=== PATIENT | male | born 1990 | race Caucasian/White ===

== ENCOUNTER 2017-10-06 19:09 | Inpatient (IN) | payer OTHER ==
[2017-10-06 19:55] VITALS: BMI 23.3
--- NOTE | 2017-10-06 20:21 | HP ---
CIWA Score - CIWA Score Nausea/Vomitin-No Nausea/No Vomiting Muscle Tremors: 1-None Visible, but [place] Anxiety: 4-Mod. Anxious/Guarded Agitation: 4-Moderately Restless Paroxysmal Sweats: 3 (flushed face) Orientation: 3-Disoriented Date>2 days Tacttile Disturbances: 0-None Auditory Disturbances: 0-None Visual Disturbances: 0-None Headache: 0-None Present CIWA-Ar Total Score: 15 Admission ROS S - HPI Chief Complaint: c/o withdrawal sx's. seeking detox from alcohol Allergies/Adverse Reactions: Allergies Allergy/AdvReac Type Severity Reaction Status Date / Time No Known Allergies Allergy Verified 10/06/17 20:13 History of Present Illness: 27 Y.O. MALE WITH ALCOHOL DEPENDENCE HERE FOR DETOX. CLIENT REPORTS A 4 YEAR HX/ O. THIS IS HIS FIRST TIME HERE BUT IS KNOWN TO OTHER INPATIENT SERVICES. REPORTS LAST DETOX 08/27/2017 AT [facility] AND THEN COMPLETED REHAB AT [facility]. REPORTS IMMEDIATELY RELPASING SINCE ME 2 WEEKS AGO. REPORTS LONGEST CLEAN TIME 2 YEARS. REPORTS HX/O SEIZURE D/O R/T DRUGS. FIRST AND LAST EPISODE BEING A MONTH AG AND WAS STARTED ON NEURONTIN. DENIES HX/O AND PRESENT SI/HI, AVH, AND BLACK OUTS. PMHX: SEIZURE, NICOTINE DEP, PSYCH: ANXIETY Exam Limitations: Intoxication - Ebola screening Have you traveled outside of the country in the last 21 days: No Have you had contact with anyone from an Ebola affected area: No Have you been sick,other than usual withdrawal symptoms: No Do you have a fever: No - Review of Systems Constitutional: Chills, Night Sweats EENT: reports: No Symptoms Reported Respiratory: reports: No Symptoms reported Cardiac: reports: No Symptoms Reported GI: reports: No Symptoms Reported : reports: No Symptoms Reported Musculoskeletal: reports: No Symptoms Reported Integumentary: reports: Change in Color (FLUSHED SKIN), Other (FLUSHED SKIN) Neuro: reports: Seizure, Tremors (FELT) Endocrine: reports: No Symptoms Reported Hematology: reports: No Symptoms Reported Psychiatric: reports: Anxious Other Systems: Reviewed and Negative Patient History - Patient Medical History Hx Anemia: No Hx Asthma: No Hx Chronic Obstructive Pulmonary Disease (COPD): No Hx Cancer: No Hx Cardiac Disorders: No Hx Congestive Heart Failure: No Hx Hypertension: No Hx Hypercholesterolemia: No Hx Pacemaker: No HX Cerebrovascular Accident: No Hx Seizures: Yes Hx Dementia: No Hx Diabetes: No Hx Gastrointestinal Disorders: No Hx Liver Disease: No Hx Genitourinary Disorders: No Hx Sexually Transmitted Disorders: No Hx Renal Disease (ESRD): No Hx Thyroid Disease: No Hx Human Immunodeficiency Virus (HIV): No Hx Hepatitis C: No Hx Depression: No Hx Suicide Attempt: No Hx Bipolar Disorder: No Hx Schizophrenia: No Other Medical History: ANXIETY - Patient Surgical History Past Surgical History: No - PPD History Previous Implant?: Yes Documented Results: Negative w/o proof Implanted On Prior [facility] Admission?: No PPD to be Administered?: Yes - Smoking Cessation Smoking history: Current every day smoker Have you smoked in the past 12 months: Yes Aproximately how many cigarettes per day: 10 Cigars Per Day: 0 Hx Chewing Tobacco Use: No Initiated information on smoking cessation: Yes 'Breaking Loose' booklet given: 10/06/17 - Substance & Tx. History Hx Alcohol Use: Yes Hx Substance Use: Yes Substance Use Type: Alcohol Hx Substance Use Treatment: Yes ([facility]) - Substances Abused BEER Route: Oral Frequency: Daily Amount used: 5-24 OZ Age of first use: 23 Date of Last Use: 10/06/17 Family Disease History - Family Disease History Family History: Denies Admission Physical Exam [facility] - Vital Signs Vital Signs: Vital Signs - 24 hr 10/06/17 19:53 Temperature 97.9 F Pulse Rate 99 H Respiratory 18 Rate Blood Pressure 119/95 - Physical General Appearance: Yes: Disheveled, Mild Distress, Alcohol on Breath, Intoxicated, Tremorous, Anxious, Other (FLUSHED SKIN) HEENTM: Yes: EOMI, Normocephalic, Normal Voice, KATHY, Pharynx Normal Respiratory: Yes: Chest Non-Tender, Lungs Clear, Normal Breath Sounds, No Respiratory Distress, No Accessory Muscle Use Neck: Yes: No masses,lesions,Nodules, Supple, Trachea in good position Breast: Yes: Breast Exam Deferred Cardiology: Yes: S1, S2, Irregularly Irregular Abdominal: Yes: Normal Bowel Sounds, Non Tender, Flat, Soft Genitourinary: Yes: Other (NO C/O) Back: Yes: Normal Inspection Musculoskeletal: Yes: full range of Motion, Gait Steady Extremities: Yes: Normal Capillary Refill, Normal Range of Motion, Non-Tender, Tremors, Other (DIRTY NAILS) Neurological: Yes: Alert, Motor Strength 5/5, Disoriented (TO DATE) Integumentary: Yes: Warm, Other (FLUSHED SKIN) Lymphatic: Yes: Within Normal Limits - Diagnostic (1) Alcohol dependence with uncomplicated withdrawal Current Visit: Yes Status: Acute (2) Nicotine dependence Current Visit: Yes Status: Chronic Qualifiers: Nicotine product type: cigarettes Substance use status: uncomplicated Qualified Code(s): F17.210 - Nicotine dependence, cigarettes, uncomplicated (3) Substance induced mood disorder Current Visit: Yes Status: Suspected (4) Skin turgor poor Current Visit: Yes Status: Acute (5) History of seizure Current Visit: Yes Status: Suspected Comment: R/T ETOH INTOXICATION/ WITHDRAWAL Cleared for Admission [facility] - Detox or Rehab [facility] Level of Care: Medically Managed Detox Regimen/Protocol: Librium Claeared for Rehab Admission: No [facility] Breath Alcohol Content Breath Alcohol Content: 0.200 Urine Drug Screen - Results Drug Screen Negative: Yes
[2017-10-06] MEDS ORDERED: LOPERAMIDE HCL 2 MG CAPSULE PO PRN (20:34)
[2017-10-06] MEDS ORDERED: MAG HYDROX/AL HYDROX/SIMETH 30 ML UNIT-DOSE CUP PO PRN (20:34)
[2017-10-06] MEDS ORDERED: hydrOXYzine PAMOATE 50 MG CAPSULE (FP) PO PRN (20:34)
[2017-10-06] MEDS ORDERED: MAGNESIUM CITRATE 300 ML BOTTLE PO PRN (20:34)
[2017-10-06] MEDS ORDERED: IBUPROFEN 400 MG TABLET (FP) PO PRN (20:34)
[2017-10-06] MEDS ORDERED: ACETAMINOPHEN 325 MG TABLET (FP) PO PRN (20:34)
[2017-10-06] MEDS ORDERED: NICOTINE POLACRILEX 2 MG GUM BUC PRN (20:34)
[2017-10-06] MEDS ORDERED: chlordiazePOXIDE HCL 25 MG CAPSULE PO PRN (20:34)
[2017-10-06] MEDS ORDERED: guaiFENesin/D-METHORPHAN HB 10 ML UNIT-DOSE CUPS PO PRN (20:34)
[2017-10-06] MEDS ORDERED: MENTHOL/PHENOL 1 EACH UD MM PRN (20:34)
[2017-10-06] MEDS ORDERED: MAGNESIUM HYDROX 2400MG/30ML ORAL SUSPENSION 30 ML CUP PO PRN (20:34)
[2017-10-06] MEDS ORDERED: P-EPHED 60MG/TRIPROLIDI 2.5MG TABLET PO PRN (20:34)
[2017-10-06] MEDS ORDERED: THIAMINE HCL 100 MG TABLET (FP) PO SCH (22:00)
[2017-10-06] MEDS ORDERED: MELATONIN 5 MG TABLETS PO PRN (22:00)
[2017-10-06] MEDS: chlordiazePOXIDE HCL 25 MG CAPSULE PO SCH (22:51)
[2017-10-07] MEDS: chlordiazePOXIDE HCL 25 MG CAPSULE PO SCH ×3 (06:02→17:55)
--- NOTE | 2017-10-07 07:31 | CONSULT ---
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 There is a substancial seizure history due to abusing Alcohol. Substance Abuse History: Smoking history: Current every day smoker. Have you smoked in the past 12 months: Yes. Aproximately how many cigarettes per day: 10. Cigars Per Day: 0. Hx Chewing Tobacco Use: No. Initiated information on smoking cessation: Yes. 'Breaking Loose' booklet given: 10/06/17. - Substance & Tx. History. Hx Alcohol Use: Yes. Hx Substance Use: Yes. Substance Use Type : Alcohol. Hx Substance Use Treatment: Yes ([facility] - Substances Abused. BEER. Route: Oral. Frequency: Daily. Amount used: 5-24 OZ. Age of first use: 23. Date of Last Use: 10/06/17 Medical History: Seizure history Psychiatric History: Reports no psychiatric hospitalization history, no history of suicdial or homicadal, reports taking Gabapentin 300mg po tid to prevent seizure attack. Denies suicidal and homicidial history. Physical/Sexual Abuse/Trauma History: Denies Additional Comment: Gabapentin 300mg po tid Mental Status Exam - Mental Status Exam Alert and Oriented to: Person Cognitive Function: Fair Patient Appearance: Unkempt Mood: Sad Affect: Flat Patient Behavior: Sedated Speech Pattern: Delayed Voice Loudness: Mildly Soft/Quiet Thought Process: Circumstantial Thought Disorder: Being Controlled Hallucinations: Denies Suicidal Ideation: Denies Homicidal Ideation: Denies Insight/Judgement: Fair Sleep: Difficulty falling asleep Appetite: Weight loss Muscle strength/Tone: Mild Hypotonicity Gait/Station: Shuffling Additional Comments: Gabapentin 300mg po tid Psychiatric Findings - Problem List ([place] 1, 2,3) (1) Alcohol dependence with uncomplicated withdrawal Current Visit: Yes Status: Acute (2) Nicotine dependence Current Visit: Yes Status: Chronic Qualifiers: Nicotine product type: cigarettes Substance use status: uncomplicated Qualified Code(s): F17.210 - Nicotine dependence, cigarettes, uncomplicated (3) History of seizure Current Visit: Yes Status: Suspected Comment: R/T ETOH INTOXICATION/ WITHDRAWAL (4) Substance induced mood disorder Current Visit: Yes Status: Suspected - Initial Treatment Plan Initial Treatment Plan: Gabapentin 300mg pom tid
[2017-10-07] MEDS ORDERED: NICOTINE 14 MG/24 HOURS TOPICAL PATCH TD SCH (10:00)
[2017-10-07] MEDS ORDERED: PRENATAL VITAMINS W/ FOLIC ACID TABLET (FP) PO SCH (10:00)
[2017-10-07 10:03] LABS: HEMATOCRIT 43.3 % (35.4-49); HEMOGLOBIN 14.7 GM/dL (11.7-16.9); MCH 32.6 pg (25.7-33.7); MCHC 33.9 g/dl (32.0-35.9); MEAN CELL VOLUME 96.1 fl (80-96); MEAN PLT VOLUME 8.5 fl (7.5-11.1); PLATELET COUNT 224 K/MM3 (134-434); RDW 13.1 % (11.9-15.9); WHITE BLOOD COUNT 10.2 K/mm3 (4.0-10.0)
[2017-10-07 10:15] LABS: ANION GAP 10 MMOL/L (8-16); BLOOD UREA NITROGEN 6 mg/dL (7-18); CALCIUM 8.5 mg/dL (8.5-10.1); CHLORIDE 105 mmol/L (98-107); CO2 27 mmol/L (21-32); CREATININE 0.7 mg/dL (0.7-1.3); GLUCOSE,RANDOM 71 mg/dL (74-106); POTASSIUM 4.1 mmol/L (3.5-5.1); SGOT/AST 20 U/L (15-37); SGPT/ALT 18 U/L (12-78); SODIUM 142 mmol/L (136-145)
[2017-10-07 10:19] LABS: ALBUMIN 3.6 g/dl (3.4-5.0); ALK PHOS 79 U/L (45-117); BILIRUBIN,TOTAL 0.6 mg/dL (0.2-1.0); TOT PROT 6.6 g/dl (6.4-8.2)
--- NOTE | 2017-10-07 10:29 | EKG ---
Test Reason : Blood Pressure : / mmHG Vent. Rate : 082 BPM Atrial Rate : 082 BPM P-R Int : 112 ms QRS Dur : 088 ms QT Int : 402 ms P-R-T Axes : 040 089 071 degrees QTc Int : 469 ms NORMAL SINUS RHYTHM WITH SINUS ARRHYTHMIA SEPTAL INFARCT , AGE UNDETERMINED ABNORMAL ECG NO PREVIOUS ECGS AVAILABLE Confirmed by JOHN YI MD ([id number]) on 10/07/2017 10:29:12 AM Referred By: Heidi Huynh Confirmed By:JOHN YI MD
--- NOTE | 2017-10-07 10:33 | PN ---
S CIWA - CIWA Score Nausea/Vomitin Muscle Tremors: 3 Anxiety: 3 Agitation: 2 Paroxysmal Sweats: 1-Minimal Palms Moist Orientation: 0-Oriented Tacttile Disturbances: 1-Very Mild Itch/Numbness Auditory Disturbances: 1-Very Mild Visual Disturbances: 0-None Headache: 2-Mild CIWA-Ar Total Score: 16 [facility] Progress Note (SOAP) Subjective: alert,irritable,anxious,interrupted sleep,tremor Objective: 10/07/17 10:29 Vital Signs Temperature 97.9 F 10/07/17 09:22 Pulse Rate 88 10/07/17 10:00 Respiratory Rate 18 10/07/17 09:22 Blood Pressure 126/78 10/07/17 09:22 O2 Sat by Pulse Oximetry (%) ekg nsr with sinus arrhythmia qt/qtc 402/469 no chest pain,no sob,no dizziness Laboratory Last Values WBC 10.2 K/mm3 (4.0-10.0) H 10/07/17 07:00 RBC 4.50 M/mm3 (4.00-5.60) 10/07/17 07:00 Hgb 14.7 GM/dL (11.7-16.9) 10/07/17 07:00 Hct 43.3 % (35.4-49) 10/07/17 07:00 MCV 96.1 fl (80-96) H 10/07/17 07:00 MCH 32.6 pg (25.7-33.7) 10/07/17 07:00 MCHC 33.9 g/dl (32.0-35.9) 10/07/17 07:00 RDW 13.1 % (11.9-15.9) 10/07/17 07:00 Plt Count 224 K/MM3 (134-434) 10/07/17 07:00 MPV 8.5 fl (7.5-11.1) 10/07/17 07:00 Sodium 142 mmol/L (136-145) 10/07/17 07:00 Potassium 4.1 mmol/L (3.5-5.1) 10/07/17 07:00 Chloride 105 mmol/L (98-107) 10/07/17 07:00 Carbon Dioxide 27 mmol/L (21-32) 10/07/17 07:00 Anion Gap 10 MMOL/L (8-16) 10/07/17 07:00 BUN 6 mg/dL (7-18) L 10/07/17 07:00 Creatinine 0.7 mg/dL (0.7-1.3) 10/07/17 07:00 Creat Clearance w eGFR > 60 (>60) 10/07/17 07:00 Random Glucose 71 mg/dL (74-106) L 10/07/17 07:00 Calcium 8.5 mg/dL (8.5-10.1) 10/07/17 07:00 Total Bilirubin 0.6 mg/dL (0.2-1.0) 10/07/17 07:00 AST 20 U/L (15-37) 10/07/17 07:00 ALT 18 U/L (12-78) 10/07/17 07:00 Alkaline Phosphatase 79 U/L (45-117) 10/07/17 07:00 Total Protein 6.6 g/dl (6.4-8.2) 10/07/17 07:00 Albumin 3.6 g/dl (3.4-5.0) 10/07/17 07:00 Assessment: 10/07/17 10:32 withdrawal symptom Plan: continue detox,encourage oral fluid
[2017-10-07 13:06] VITALS: BP 131/74; TEMP 97.7
--- NOTE | 2017-10-07 13:06 | PN ---
[facility] Progress Note Note: patient did not want to complete treatment,all attempts to convince patient to stay with no avail,seen by counselor, risk of withdrawal and relapsing explained,advise patient to go to er if withdrawal symptom
--- NOTE | 2017-10-07 13:11 | DS ---
[facility] Detox Discharge Summary Admission Date: 10/06/17 Discharge Date: 10/07/17 - History Present History: Alcohol Dependence Additional Comments: patient signed out ama Pertinent Past History: nicotine dependence seizure history - Physical Exam Results Vital Signs: Vital Signs Temperature 97.7 F 10/07/17 13:05 Pulse Rate 70 10/07/17 13:05 Respiratory Rate 18 10/07/17 13:05 Blood Pressure 131/74 10/07/17 13:05 O2 Sat by Pulse Oximetry (%) Pertinent Admission Physical Exam Findings: withdrawal signs and symptom Vital Signs Temperature 97.7 F 10/07/17 13:05 Pulse Rate 70 10/07/17 13:05 Respiratory Rate 18 10/07/17 13:05 Blood Pressure 131/74 10/07/17 13:05 O2 Sat by Pulse Oximetry (%) Laboratory Last Values WBC 10.2 K/mm3 (4.0-10.0) H 10/07/17 07:00 RBC 4.50 M/mm3 (4.00-5.60) 10/07/17 07:00 Hgb 14.7 GM/dL (11.7-16.9) 10/07/17 07:00 Hct 43.3 % (35.4-49) 10/07/17 07:00 MCV 96.1 fl (80-96) H 10/07/17 07:00 MCH 32.6 pg (25.7-33.7) 10/07/17 07:00 MCHC 33.9 g/dl (32.0-35.9) 10/07/17 07:00 RDW 13.1 % (11.9-15.9) 10/07/17 07:00 Plt Count 224 K/MM3 (134-434) 10/07/17 07:00 MPV 8.5 fl (7.5-11.1) 10/07/17 07:00 Sodium 142 mmol/L (136-145) 10/07/17 07:00 Potassium 4.1 mmol/L (3.5-5.1) 10/07/17 07:00 Chloride 105 mmol/L (98-107) 10/07/17 07:00 Carbon Dioxide 27 mmol/L (21-32) 10/07/17 07:00 Anion Gap 10 MMOL/L (8-16) 10/07/17 07:00 BUN 6 mg/dL (7-18) L 10/07/17 07:00 Creatinine 0.7 mg/dL (0.7-1.3) 10/07/17 07:00 Creat Clearance w eGFR > 60 (>60) 10/07/17 07:00 Random Glucose 71 mg/dL (74-106) L 10/07/17 07:00 Calcium 8.5 mg/dL (8.5-10.1) 10/07/17 07:00 Total Bilirubin 0.6 mg/dL (0.2-1.0) 10/07/17 07:00 AST 20 U/L (15-37) 10/07/17 07:00 ALT 18 U/L (12-78) 10/07/17 07:00 Alkaline Phosphatase 79 U/L (45-117) 10/07/17 07:00 Total Protein 6.6 g/dl (6.4-8.2) 10/07/17 07:00 Albumin 3.6 g/dl (3.4-5.0) 10/07/17 07:00 RPR Titer Nonreactive (NONREACTIVE) 10/07/17 07:00 HIV 1&2 Antibody Screen Negative 10/07/17 07:00 HIV P24 Antigen Negative 10/07/17 07:00 - Medication Discharge Medications: Ambulatory Orders Gabapentin 300 mg PO TID 10/06/17 Mirtazapine [Remeron -] 15 mg PO HS 10/06/17 Gabapentin [Neurontin -] 300 mg PO TID #90 capsule 10/07/17 - Diagnosis (1) Alcohol dependence with uncomplicated withdrawal Current Visit: Yes Status: Acute (2) Nicotine dependence Current Visit: Yes Status: Chronic Qualifiers: Nicotine product type: cigarettes Substance use status: uncomplicated Qualified Code(s): F17.210 - Nicotine dependence, cigarettes, uncomplicated (3) History of seizure Current Visit: Yes Status: Suspected (4) Substance induced mood disorder Current Visit: Yes Status: Suspected - AMA Did Patient Leave Against Medical Advice: Yes
[2017-10-07] MEDS ORDERED: GABAPENTIN 300 MG CAPSULE (FP) PO SCH (14:00)
[2017-10-07 15:35] VITALS: PULSE 88
[2017-10-07 18:00] LABS: PH,URINE 6.5 (5.0-8.0); URINE APPEARANCE CLEAR; URINE BILIRUBIN NEGATIVE (<2.0 mg/dL); URINE COLOR YELLOW; URINE GLUCOSE (UA) NEGATIVE (NEGATIVE); URINE KETONE NEGATIVE (NEGATIVE); URINE LEUK ESTERASE NEGATIVE (NEGATIVE); URINE NITRITE NEGATIVE (NEGATIVE); URINE PROTEIN NEGATIVE (NEGATIVE); URINE UROBILINOGEN 0.2 mg/dL (0.2-1.0)
[2017-10-07] MEDS ORDERED: chlordiazePOXIDE HCL 25 MG CAPSULE PO SCH (23:00)
[2017-10-08] MEDS ORDERED: chlordiazePOXIDE 5 MG CAPSULE PO SCH (23:00)
[2017-10-09] MEDS ORDERED: chlordiazePOXIDE HCL 10 MG CAPSULE PO SCH (23:00)
== END 2017-10-07 17:03 | disposition left against medical advice (07) | DRG 770 ==
LOC: YASAS 19:09 → Y6N 20:01
PROVIDERS: ADMIT Surgery; ATTEND Surgery
PROC: HZ2ZZZZ Detoxification Services for Substance Abuse Treatment (ICD-10-PCS; principal; 2017-10-06)
PROC: HZ2ZZZZ Detoxification Services for Substance Abuse Treatment (ICD-10-PCS; 2017-10-06)
DX: F10.230 Alcohol dependence with withdrawal, uncomplicated (principal); F17.210 Nicotine dependence, cigarettes, uncomplicated; F19.24 Other psychoactive substance dependence with psychoactive substance-induced mood disorder; Z86.69 Personal history of other diseases of the nervous system and sense organs; R23.8 Other skin changes; F41.9 Anxiety disorder, unspecified
CPT/HCPCS: 36415; 80053; 81003; 85027; 86593; 87389; 93005; 93010

== ENCOUNTER 2022-02-15 16:35 | Inpatient (IN) | payer OTHER ==
[2022-02-15 18:31] VITALS: BMI 22.8
[2022-02-15] MEDS ORDERED: LOPERAMIDE HCL 2 MG CAPSULE PO PRN (18:45)
[2022-02-15] MEDS ORDERED: ACETAMINOPHEN 325 MG TABLET (FP) PO PRN ×2 (18:45)
[2022-02-15] MEDS ORDERED: IBUPROFEN 400 MG TABLET (FP) PO PRN (18:45)
[2022-02-15] MEDS ORDERED: DICYCLOMINE HCL 10 MG CAPSULE PO PRN (18:45)
[2022-02-15] MEDS ORDERED: BISMUTH SUBSALICYLATE 524 MG/30 ML PO PRN (18:45)
[2022-02-15] MEDS ORDERED: POLYETHYLENE GLYCOL (HEALTHYLAX) 3350 17 GM PACKET PO PRN (18:45)
[2022-02-15] MEDS ORDERED: IBUPROFEN 600 MG TABLET (FP) PO PRN (18:45)
[2022-02-15] MEDS ORDERED: hydrOXYzine PAMOATE 25 MG CAPSULE (FP) PO PRN (18:45)
[2022-02-15] MEDS ORDERED: NALOXONE HCL (KLOXXADO) 8 MG SPRAY NS PRN (18:45)
[2022-02-15] MEDS ORDERED: MAGNESIUM HYDROX 2400MG/30ML ORAL SUSPENSION 30 ML CUP PO PRN (18:45)
[2022-02-15] MEDS ORDERED: BENZOCAINE/MENTHOL (CHLORASEPTIC ) LOZENGE MM PRN (18:45)
[2022-02-15] MEDS ORDERED: MAG HYDROX/AL HYDROX/SIMETH 30 ML UNIT-DOSE CUP PO PRN (18:45)
[2022-02-15] MEDS ORDERED: METHOCARBAMOL 500 MG TABLET PO PRN (18:45)
[2022-02-15] MEDS ORDERED: ONDANSETRON *ODT* 4 MG TABLET SL PRN (18:45)
[2022-02-15] MEDS ORDERED: ONDANSETRON *ODT* 4 MG TABLET ONE (18:58)
[2022-02-15] MEDS: chlordiazePOXIDE HCL 25 MG CAPSULE PO PRN (19:19)
[2022-02-15] MEDS ORDERED: hydrOXYzine PAMOATE 25 MG CAPSULE (FP) PO ONE (19:23)
[2022-02-15] MEDS ORDERED: chlordiazePOXIDE HCL 25 MG CAPSULE ONE (19:24)
[2022-02-15] MEDS: PRENATAL VITAMINS W/ FOLIC ACID TABLET (FP) PO SCH (21:13)
[2022-02-15] MEDS: NICOTINE POLACRILEX 4 MG GUM BUC PRN ×2 (21:23→23:32)
[2022-02-15] MEDS: GABAPENTIN 300 MG CAPSULE PO SCH (22:24)
[2022-02-15] MEDS: THIAMINE HCL 100 MG TABLET (FP) PO SCH (22:24)
[2022-02-15] MEDS: chlordiazePOXIDE HCL 25 MG CAPSULE PO SCH (22:24)
[2022-02-15] MEDS: MELATONIN 5 MG TABLETS PO SCH (22:24)
[2022-02-15] MEDS: NICOTINE 10 MG CARTRIDGE (INHALER) IH PRN (23:07)
[2022-02-16] MEDS: GABAPENTIN 300 MG CAPSULE PO SCH ×3 (05:27→22:16)
[2022-02-16] MEDS: chlordiazePOXIDE HCL 25 MG CAPSULE PO SCH ×4 (05:27→22:17)
[2022-02-16] MEDS: PRENATAL VITAMINS W/ FOLIC ACID TABLET (FP) PO SCH (10:13)
[2022-02-16] MEDS: NICOTINE 10 MG CARTRIDGE (INHALER) IH PRN ×2 (10:16→18:05)
[2022-02-16 14:31] LABS: HEMOGLOBIN 14.2 GM/dL (11.7-16.9); MCH 34.4 pg (25.7-33.7); MCHC 33.7 g/dl (32.0-35.9); MEAN CELL VOLUME 102.1 fl (80-96); MEAN PLT VOLUME 8.3 fl (7.5-11.1); PLATELET COUNT 245 10^3/uL (134-434); RBC 4.11 M/mm3 (4.00-5.60); RDW 13.4 % (11.9-15.9); WHITE BLOOD COUNT 6.8 K/mm3 (4.0-10.0)
[2022-02-16 15:19] LABS: ALBUMIN 3.3 g/dl (3.4-5.0); BLOOD UREA NITROGEN 4.3 mg/dL (7-18)
[2022-02-16 15:22] LABS: CREATININE 0.9 mg/dL (0.55-1.3)
[2022-02-16 15:23] LABS: CALCIUM 8.5 mg/dL (8.5-10.1)
[2022-02-16 15:24] LABS: BILIRUBIN,TOTAL 1.6 mg/dL (0.2-1); TOT PROT 6.4 g/dl (6.4-8.2)
[2022-02-16] MEDS: chlordiazePOXIDE HCL 25 MG CAPSULE PO PRN (15:34)
[2022-02-16] MEDS: NICOTINE POLACRILEX 4 MG GUM BUC PRN (18:05)
[2022-02-16] MEDS: THIAMINE HCL 100 MG TABLET (FP) PO SCH (22:16)
[2022-02-16] MEDS: MELATONIN 5 MG TABLETS PO SCH (22:16)
[2022-02-17] MEDS: chlordiazePOXIDE HCL 25 MG CAPSULE PO SCH ×4 (05:56→22:25)
[2022-02-17] MEDS: GABAPENTIN 300 MG CAPSULE PO SCH ×3 (05:56→22:25)
[2022-02-17] MEDS: NICOTINE 10 MG CARTRIDGE (INHALER) IH PRN ×3 (09:01→17:01)
[2022-02-17] MEDS: PRENATAL VITAMINS W/ FOLIC ACID TABLET (FP) PO SCH (10:27)
[2022-02-17] MEDS: LACTULOSE 20 GM/30 ML UDC (FOR ORAL USE ONLY) PO SCH ×2 (17:56→22:25)
[2022-02-17] MEDS: NICOTINE POLACRILEX 4 MG GUM BUC PRN (18:44)
[2022-02-17] MEDS: MELATONIN 5 MG TABLETS PO SCH (22:25)
[2022-02-17] MEDS: THIAMINE HCL 100 MG TABLET (FP) PO SCH (22:25)
[2022-02-18] MEDS ORDERED: chlordiazePOXIDE HCL 10 MG CAPSULE PO PRN
[2022-02-18] MEDS: GABAPENTIN 300 MG CAPSULE PO SCH ×3 (06:36→22:05)
[2022-02-18] MEDS: chlordiazePOXIDE HCL 10 MG CAPSULE PO SCH ×4 (06:36→22:06)
[2022-02-18] MEDS: LACTULOSE 20 GM/30 ML UDC (FOR ORAL USE ONLY) PO SCH ×4 (10:22→22:05)
[2022-02-18] MEDS: PRENATAL VITAMINS W/ FOLIC ACID TABLET (FP) PO SCH (10:22)
[2022-02-18] MEDS: NICOTINE 10 MG CARTRIDGE (INHALER) IH PRN ×2 (14:32→22:06)
[2022-02-18 21:09] VITALS: BP 110/57; PULSE 77; RESP 19; TEMP 97.7
[2022-02-18] MEDS: THIAMINE HCL 100 MG TABLET (FP) PO SCH (22:05)
[2022-02-18] MEDS: MELATONIN 5 MG TABLETS PO SCH (22:05)
[2022-02-19] MEDS ORDERED: chlordiazePOXIDE HCL 10 MG CAPSULE PO SCH (05:00)
[2022-02-20] MEDS ORDERED: chlordiazePOXIDE HCL 10 MG CAPSULE PO ONE (05:00)
== END 2022-02-18 23:49 | disposition left against medical advice (07) | DRG 770 ==
LOC: YASAS 16:35 → Y3N 20:29
PROVIDERS: ADMIT Allergy & Immunology; ATTEND Surgery
PROC: HZ2ZZZZ Detoxification Services for Substance Abuse Treatment (ICD-10-PCS; principal; 2022-02-15)
DX: F10.230 Alcohol dependence with withdrawal, uncomplicated (principal); F13.20 Sedative, hypnotic or anxiolytic dependence, uncomplicated; F17.210 Nicotine dependence, cigarettes, uncomplicated; F19.24 Other psychoactive substance dependence with psychoactive substance-induced mood disorder; E72.20 Disorder of urea cycle metabolism, unspecified; E87.6 Hypokalemia; Z86.69 Personal history of other diseases of the nervous system and sense organs; Z28.310 Unvaccinated for COVID-19; Z28.9 Immunization not carried out for unspecified reason
CPT/HCPCS: 36415; 80053; 82140; 85027; 86780; 93005; 93010; C9803-CS; Q0162; U0003; U0005